=== PATIENT | male | born 1970 | race American Indian/Alaskan Native ===

== ENCOUNTER 2021-02-19 20:43 | Emergency (ER) | payer SELFPAY ==
--- NOTE | 2021-02-19 22:14 | XRay Report ---
RIGHT KNEE 3 VIEWS INDICATION / CLINICAL INFORMATION: injury/pain/swelling COMPARISON: None available. FINDINGS: BONES / JOINT(S): No acute fracture or subluxation. No significant arthritis. SOFT TISSUES: Small joint effusion. ADDITIONAL FINDINGS: None. Signer Name: Keon Kong MD Signed: 02/19/2021 10:09 PM Workstation Name: [id number]
[2021-02-19 22:15] VITALS: BP 151/101
--- NOTE | 2021-02-19 22:23 | Emergency Department Report ---
ED General Adult HPI - General Chief complaint: Extremity Injury, Lower Stated complaint: RT KNEE INJURY Time Seen by Provider: 02/19/21 22:10 Source: patient Mode of arrival: Ambulatory Limitations: No Limitations - History of Present Illness Initial comments: 50-year-old male patient presents to emergency department with complaints of right knee pain starting 3 weeks ago. Patient states the pain began after he missed a step while climbing down a ladder and "pivoted wrong." He has been taking [id number]-mfi-owcrder analgesics with limited relief. Pain is worse with weightbearing. No history of prior injuries to the right knee. Patient is not anticoagulated. Denies hip pain, ankle pain, foot pain, paresthesias, numbness, skin color changes. Denies all other complaints at this time. Severity scale (0 -10): 3 - Related Data Previous Rx's Medication Instructions Recorded Last Taken Type Ciprofloxacin HCl [Cipro] 500 mg PO BID #14 tablet 05/01/14 Unknown Rx HYDROcodone/APAP 5-325 [[place] 1 each PO Q6HR PRN #14 tablet 05/01/14 Unknown Rx 5/325] Promethazine [Phenergan] 25 mg PO Q6H PRN #14 tablet 05/01/14 Unknown Rx Naproxen 500 mg PO BID #20 tablet 02/19/21 Unknown Rx Allergies Allergy/AdvReac Type Severity Reaction Status Date / Time No Known Allergies Allergy Unverified 05/01/14 10:49 ED Review of Systems ROS: Stated complaint: RT KNEE INJURY Other details as noted in HPI Other: GENERAL: Negative for fever. CARDIOVASCULAR: Negative for chest pain. PULMONARY: Negative for shortness of breath. GASTROINTESTINAL: Negative for abdominal pain. MUSCULOSKELETAL: Positive for knee pain. NEUROLOGICAL: Negative for headache. INTEGUMENTARY: Negative for rash. ED Past Medical Hx - Past Medical History Previous Medical History?: No - Surgical History Past Surgical History?: No - Social History Smoking Status: Never Smoker Substance Use Type: None - Medications Home Medications: Home Medications Medication Instructions Recorded Confirmed Last Taken Type Ciprofloxacin HCl [Cipro] 500 mg PO BID #14 tablet 05/01/14 Unknown Rx HYDROcodone/APAP 5-325 [[place] 1 each PO Q6HR PRN #14 tablet 05/01/14 Unknown Rx 5/325] Promethazine [Phenergan] 25 mg PO Q6H PRN #14 tablet 05/01/14 Unknown Rx Naproxen 500 mg PO BID #20 tablet 02/19/21 Unknown Rx ED Physical Exam - General Limitations: No Limitations - Other Other exam information: General: Awake, appropriately interactive, no acute distress. Neck: Supple. Full range of motion intact. Cardiovascular: Normal peripheral perfusion. Pulmonary: No respiratory distress. Patient is speaking normally without use of accessory muscles. Skin: No apparent rashes or lesions. Neurological: No facial asymmetry. Speech is clear. Follows commands. Patient is alert and oriented. Musculoskeletal: Tenderness to palpation along the suprapatellar and medial aspect of the right knee with mild soft tissue swelling. No obvious deformity or dislocation. Anterior drawer sign is negative. Valgus and varus stress tests are negative. Distal neurovascular and motor/sensory function intact. Psych: Cooperative. Appropriate mood and affect. ED Course Vital Signs 02/19/21 02/19/21 21:01 22:15 Temperature 98.9 F Pulse Rate 113 H 98 H Respiratory 18 18 Rate Blood Pressure 145/103 Blood Pressure 151/101 [Right] O2 Sat by Pulse 99 97 Oximetry ED Medical Decision Making - Medical Decision Making Differential diagnosis including but not limited to: sprain, strain, fracture, contusion, dislocation, meniscal injury, collateral ligament injury Patient presents to the emergency department with complaints of traumatic right knee pain for 3 weeks. Initial tachycardia on arrival to the emergency department resolved without intervention. Repeat heart rate is 98 bpm. X-rays ordered by medical unit secretary without acute process. Mechanism of injury and physical exam findings suggestive of meniscal versus collateral ligament injury. No clinical indication for further diagnostic work-up on an emergent basis at this time. Patient was advised that he may require an MRI on an outpatient basis for further evaluation if symptoms fail to improve with conservative management. Patient will be discharged home with knee immobilizer, crutches, appropriate analgesics, and referral to orthopedics for close outpatient follow-up. Patient expressed understanding and is agreeable to plan of care. RICE precautions discussed. Strict return precautions provided. History, exam, diagnostic testing, and current condition do not suggest worrisome pathology to warrant further testing, continued ED treatment, admission, or surgical evaluation at this point. Given the low probability of a significant medical illness, it would be more likely to result in harm than benefit to perform further testing at this stage. Discussed findings, presumptive diagnosis, need for follow-up and specific signs/symptoms that should prompt immediate return to the emergency department. Instructions were explained in detail to the patient in addition to giving written discharge information. Patient expressed understanding and was given the opportunity to ask questions, all of which were satisfactorily answered prior to discharge home. Critical care attestation.: If time is entered above; I have spent that time in minutes in the direct care of this critically ill patient, excluding procedure time. ED Disposition Clinical Impression: Right knee injury Qualifiers: Encounter type: initial encounter Qualified Code(s): S89.91XA - Unspecified injury of right lower leg, initial encounter Disposition: TO HOME OR SELFCARE Is pt being admited?: No Does the pt Need Aspirin: No Condition: Stable Instructions: Knee Sprain, Adult, [id number] Additional Instructions: Take Tylenol every 4 hours as needed for pain. Take Naprosyn twice daily with food as needed for pain. Wear knee immobilizer as directed. Use crutches as needed. Keep right knee elevated as often as possible to reduce swelling. Apply ice to affected area as needed to reduce swelling. Follow-up with Dr. Drake, orthopedics, this week. Call tomorrow to schedule an appointment. See referral information below. Return to the emergency department immediately for new or worsening symptoms. Prescriptions: Naproxen 500 mg PO BID #20 tablet Referrals: KY DRAKE MD [Staff Physician] - 3-5 Days Time of Disposition: 22:24
== END 2021-02-19 23:15 | disposition home or self-care (01) ==
LOC: ED 20:43
DX: S89.91XA Unspecified injury of right lower leg, initial encounter (principal); Z79.899 Other long term (current) drug therapy; W11.XXXA Fall on and from ladder, initial encounter; Y93.89 Activity, other specified; Y92.89 Other specified places as the place of occurrence of the external cause; Y99.8 Other external cause status
CPT/HCPCS: 99283